=== PATIENT | male | born 1975 | race Caucasian/White ===

== ENCOUNTER 2019-12-10 03:19 | Emergency (ER) | payer SELFPAY ==
[~2019-12-10] VITALS: Ht 193 cm; Wt 104.3 kg
[2019-12-10] MEDS ORDERED: FLUORESCEIN SOD(OPTH) 1 MG STRP OP ONE (03:30)
[2019-12-10] MEDS ORDERED: FLUORESCEIN SOD(OPTH) 1 MG STRP ONE (03:37)
--- NOTE | 2019-12-10 03:41 | Emergency Department Note ---
History of Present Illnes History of Present Illness Chief Complaint: Eye, Ear, Nose, Throat, Dental History of Present Illness This is a 44 year old male Chief Complaint Comment 44 Y/O MALE PT AAOX3 PRESENTS TO THE ER C/O LY EYE PAIN SINCE YESTERDAY; PT STATES HE WAS TRIMMING HIS TREES WHEN A BRANCH HIT HIM IN THE EYE; ERTHYEMA NOTED; PT DENIES BLURRED VISON OR LOSS OF VISION IN LT EYE. 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 Any updates have been documented here. Past Medical History Recent Fever: No Clinical Suspicion of Infectio: No New/Unexplained Change in Ment: No Past Medical History: Hypertension Past Surgical History: None Social History Smoking Cessation: Current every day smoker Alcohol Use: Daily Any Illegal Drug Use: Yes (PT REFUSES TO SPECIFY) Physically hurt or threatened: No Other Any Pre-Existing Lines (PICC,: No Review of Systems Review of Systems Constitutional: Reports no symptoms EENTM: Reports as per HPI; Denies eye pain, Denies blurred vision Cardiovascular: Reports no symptoms Respiratory: Reports no symptoms Gastrointestinal: Reports no symptoms Genitourinary: Reports no symptoms Musculoskeletal: Reports no symptoms Integumentary: Reports no symptoms Neurological: Reports no symptoms Psychological: Reports no symptoms Endocrine: Reports no symptoms Hematological/Lymphatic: Reports no symptoms Physical Exam Related Data Allergies: Coded Allergies: Penicillins (Verified Allergy, Unknown, 12/10/19) Triage Vital Signs Vital Signs Date Time Temp Pulse Resp B/P (MAP) Pulse Ox O2 Delivery O2 Flow Rate FiO2 12/10/19 03:26 92 18 100 Room Air Vital signs reviewed: Yes Physical Exam CONSTITUTIONAL Constitutional: Present well-developed, Present well-nourished HENT HENT: Present normocephalic, Present atraumatic, Present oropharynx clear/moist, Present nose normal HENT L/R: Present left ext ear normal, Present right ext ear normal EYES Eyes: Reports PERRL, Reports conjunctivae normal (L eye Subconjuntival hemorrhage. No hyphema. Vision intact. fluorescin staining shows no significant uptake) NECK Neck: Present ROM normal PULMONARY Pulmonary: Present effort normal, Present breath sounds normal CARDIOVASCULAR Cardiovascular: Present regular rhythm, Present heart sounds normal, Present capillary refill normal, Present normal rate GASTROINTESTINAL Abdominal: Present soft, Present nontender, Present bowel sounds normal GENITOURINARY Genitourinary: Present exam deferred SKIN Skin: Present warm, Present dry MUSCULOSKELETAL Musculoskeletal: Present ROM normal NEUROLOGICAL Neurological: Present alert, Present oriented x 3, Present no gross motor or se nsory deficits PSYCHOLOGICAL Psychological: Present mood/affect normal, Present judgement normal Assessment & Plan Medical Decision Making MDM 44-year-old male presents for left eye redness after being hit branch in the left eye. No vision loss or pain with EOMI. on exam shows a reactive pupil with no hyphema. No fluorescein uptake. Diagnosis favors subconjunctival hemorrhage. Instructed patient that this will spontaneously resolve in 14 days and he should follow-up with an pie filler if he has any new or worsening symptoms. Instructed him that he needs to wear eye protection while working. Also informed to stop smoking as delayed healing process. Patient states agreement to plan and is appropriate for discharge. Assessment & Plan Final Impression: (1) Subconjunctival hemorrhage Depart Disposition: HOME, SELF-CARE Last Vital Signs Date Time Temp Pulse Resp B/P (MAP) Pulse Ox O2 Delivery O2 Flow Rate FiO2 12/10/19 03:26 92 18 100 Room Air Medications in the ED Fluorescein Sodium 1 mg ONCE ONCE OP Last administered on 12/10/19at 03:33; Admin Dose 1 MG; Start 12/10/19 at 03:30; Stop 12/10/19 at 03:31; Status DC Fluorescein Sodium 1 mg STK-MED ONCE .ROUTE ; Start 12/10/19 at 03:37; Stop at 03:31; Status DC DENISE MENDOZA MD Dec 10, 2019 03:41
== END 2019-12-10 03:38 | disposition home or self-care (01) ==
LOC: ER 03:37
DX: H57.12 Ocular pain, left eye (principal); H11.32 Conjunctival hemorrhage, left eye; W22.8XXA Striking against or struck by other objects, initial encounter; Y93.H2 Activity, gardening and landscaping; Y92.007 Garden or yard of unspecified non-institutional (private) residence as the place of occurrence of the external cause; I10 Essential (primary) hypertension; F17.210 Nicotine dependence, cigarettes, uncomplicated
CPT/HCPCS: 99282